=== PATIENT | male | born 1990 | race African-American/Black ===

== ENCOUNTER 2018-11-07 13:39 | Emergency (ER) | payer OTHER ==
--- NOTE | 2018-11-07 14:17 | ER ---
Nurse's Notes [facility] Name: Yamlia Bernardo Age: 28 yrs Sex: Male : 1990 Arrival Date: 11/07/2018 Time: 13:42 Bed 2 Private MD: Diagnosis: Assessment: 11/07 14:16 Reassessment: pt stated that he had to leave for unknown reason, had baby with him. iw ED Course: 13:42 Patient arrived in ED. mr 14:16 Lashae Pedraza, RN is Primary Nurse. iw Administered Medications: No medications were administered Outcome: 14:16 Eloped from waiting room, before seeing physician iw 14:17 Patient left the ED. iw Signatures: Marianna Garcia mr Lashae Pedraza, RN RN iw
== END 2018-11-07 14:17 | disposition left against medical advice (07) ==
LOC: ER 13:39
DX: Z53.21 Procedure and treatment not carried out due to patient leaving prior to being seen by health care provider (principal)

== ENCOUNTER 2018-11-16 08:26 | Emergency (ER) | payer OTHER ==
[2018-11-16] MEDS ORDERED: dexAMETHasone 10 MG/ML VIAL ONE (08:53)
[2018-11-16 09:07] LABS: Basophils % 0.7 % (0-1.3); Eosinophils % 2.6 % (0-4.4); Hematocrit 42.5 % (39.6-49.0); Lymphocytes % 24.3 % (15.3-44.8); MPV 8.6 fL (7.6-11.3); Monocytes % 9.1 % (3.3-12.3)
[2018-11-16 09:22] LABS: ALT/SGPT 22 U/L (12-78); AST/SGOT 17 U/L (15-37); Albumin 3.6 g/dL (3.4-5.0); Alkaline Phosphatase 73 U/L (45-117); BUN Blood Urea Nitrogen 13 mg/dL (7-18); Bicarbonate 31 mmol/L (21-32); Bilirubin Total 0.2 mg/dL (0.2-1.0); Glucose Level 102 mg/dL (74-106); Potassium 3.9 mmol/L (3.5-5.1); Protein, Total 6.7 g/dL (6.4-8.2); Sodium Level 146 mmol/L (136-145)
--- NOTE | 2018-11-16 09:32 | ER ---
Nurse's Notes [facility] Name: Yamila Bernardo Age: 28 yrs Sex: Male : 1990 Arrival Date: 11/16/2018 Time: 08:28 Bed 20 Private MD: Diagnosis: Acute upper respiratory infection, unspecified Presentation: 11/16 08:29 Presenting complaint: EMS states: N/V for 2 weeks, reports cough for 2 weeks, denies em fever, VSS. Transition of care: patient was not received from another setting of care. Onset of symptoms was October 31, 2018. Risk Assessment: Do you want to hurt yourself or someone else? Patient reports no desire to harm self or others. Initial Sepsis Screen: Does the patient meet any 2 criteria? No. Patient's initial sepsis screen is negative. Does the patient have a suspected source of infection? No. Patient's initial sepsis screen is negative. Care prior to arrival: None. 08:29 Method Of Arrival: EMS: [facility] em 08:41 Acuity: YOANA 3 sg Triage Assessment: 08:32 General: Appears in no apparent distress. comfortable, Behavior is calm, cooperative. em Pain: Denies pain. Historical: - Allergies: 08:32 No Known Allergies; em - Home Meds: 08:32 None [Active]; em - PMHx: 08:32 None; em - PSHx: 08:32 None; em - Immunization history:: Adult Immunizations up to date. - Social history:: Smoking status: Patient uses tobacco products, denies chronic smoking, but will smoke occasionally. - Ebola Screening: : Patient negative for fever greater than or equal to 101.5 degrees Fahrenheit, and additional compatible Ebola Virus Disease symptoms Patient denies exposure to infectious person Patient denies travel to an Ebola-affected area in the 21 days before illness onset No symptoms or risks identified at this time. Screenin:34 Abuse screen: Denies threats or abuse. Nutritional screening: No deficits noted. em Tuberculosis screening: No symptoms or risk factors identified. Fall Risk None identified. Assessment: 08:32 General: Appears in no apparent distress. comfortable, Behavior is calm, cooperative, em Denies fever. Pain: Denies pain. Neuro: Level of Consciousness is awake, alert, obeys commands, Oriented to person, place, time, situation. Cardiovascular: Capillary refill < 3 seconds Patient's skin is warm and dry. Respiratory: Reports cough that is productive, Airway is patent Respiratory effort is even, unlabored, Respiratory pattern is regular, symmetrical, Breath sounds are clear bilaterally. Onset: The symptoms/episode began/occurred 2 weeks. GI: Abdomen is flat, Bowel sounds present X 4 quads. Abd is soft and non tender X 4 quads. Reports vomiting. Derm: Skin is intact, is healthy with good turgor, Skin is pink, warm \T\ dry. Musculoskeletal: Capillary refill < 3 seconds, Range of motion: intact in all extremities. 08:40 Reassessment: I agree with the assessment made by Ye JAFFE. sg 09:44 Reassessment: Patient appears in no apparent distress at this time. Patient and/or em family updated on plan of care and expected duration. Pain level reassessed. Patient is alert, oriented x 3, equal unlabored respirations, skin warm/dry/pink. Patient states symptoms have improved. Vital Signs: 08:32 BP 117 / 78; Pulse 87; Resp 18; Temp 97.8; Pulse Ox 99% on R/A; Weight 73.48 kg; Height em 5 ft. 7 in. (170.18 cm); Pain 0/10; 09:44 BP 103 / 73; Pulse 79; Resp 16; Pulse Ox 99% on R/A; em 08:32 Body Mass Index 25.37 (73.48 kg, 170.18 cm) em ED Course: 08:28 Patient arrived in ED. em 08:29 Rosamaria Reynolds FNP is [facility]. nh 08:29 Tobi Hernández MD is Attending Physician. nh 08:32 Arm band placed on. em 08:32 Maintain EMS IV. Dressing intact. Good blood return noted. Site clean \T\ dry. Gauge \T\ em site: 20 LAC. 08:34 Ye Fernandez LVN is Primary Nurse. em 08:34 Patient has correct armband on for positive identification. Bed in low position. Call em light in reach. 08:41 Triage completed. sg 08:46 Chest Pa And Lat (2 Views) XRAY In Process Unspecified. EDMS 09:43 No provider procedures requiring assistance completed. IV discontinued, intact, em bleeding controlled, No redness/swelling at site. Pressure dressing applied. Administered Medications: 08:48 Not Given (Other Intervention Used): Dexamethasone 10 mg IM once em 08:57 Drug: Decadron - Dexamethasone 10 mg Route: IVP; Site: left antecubital; hb 09:42 Follow up: Response: No adverse reaction; Marked relief of symptoms em Outcome: 09:32 Discharge ordered by . ny 09:43 Discharged to home ambulatory. em 09:43 Condition: good 09:43 Discharge instructions given to patient, Instructed on discharge instructions, follow up and referral plans. medication usage, Demonstrated understanding of instructions, follow-up care, medications, Prescriptions given X 2. 09:45 Patient left the ED. em Signatures: Dispatcher [employer] Sin Muniz RN RN sg Rosamaria Reynolds, MAGNETOMETER OPERATOR MAGNETOMETER OPERATOR ny Ye Fernandez, CYCLE DIRECTOR CYCLE DIRECTOR Heather Betancourt, RN RN
--- NOTE | 2018-11-16 09:33 | EDPHYS ---
Physician Documentation [facility] Name: Yamila Bernardo Age: 28 yrs Sex: Male : 1990 Arrival Date: 11/16/2018 Time: 08:28 Bed 20 Private MD: ED Physician Tobi Hernández HPI: 11/16 09:28 This 28 yrs old Black Male presents to ER via EMS with complaints of Nausea/Vomiting. nh 09:29 The patient or guardian reports cough, that is intermittent, with no sputum. Onset: The nh symptoms/episode began/occurred 2 week(s) ago. Severity of symptoms: At their worst the symptoms were moderate, just prior to arrival, in the emergency department the symptoms are unchanged. Associated signs and symptoms: Pertinent positives: sore throat, Pertinent negatives: chest pain, nausea, rhinorrhea. The patient has not experienced similar symptoms in the past. The patient has not recently seen a physician. Historical: - Allergies: 08:32 No Known Allergies; em - Home Meds: 08:32 None [Active]; em - PMHx: 08:32 None; em - PSHx: 08:32 None; em - Immunization history:: Adult Immunizations up to date. - Social history:: Smoking status: Patient uses tobacco products, denies chronic smoking, but will smoke occasionally. - Ebola Screening: : Patient negative for fever greater than or equal to 101.5 degrees Fahrenheit, and additional compatible Ebola Virus Disease symptoms Patient denies exposure to infectious person Patient denies travel to an Ebola-affected area in the 21 days before illness onset No symptoms or risks identified at this time. ROS: 09:29 Constitutional: Negative for fever, chills, and weight loss, Eyes: Negative for injury, nh pain, redness, and discharge, ENT: Negative for injury, pain, and discharge, Neck: Negative for injury, pain, and swelling, Cardiovascular: Negative for chest pain, palpitations, and edema, Back: Negative for injury and pain, : Negative for injury, bleeding, discharge, and swelling, MS/Extremity: Negative for injury and deformity, Skin: Negative for injury, rash, and discoloration, Neuro: Negative for headache, weakness, numbness, tingling, and seizure, Psych: Negative for depression, anxiety, suicide ideation, homicidal ideation, and hallucinations, Allergy/Immunology: Negative for hives, rash, and allergies. 09:29 Cardiovascular: Negative for chest pain, palpitations, and edema. 09:29 Respiratory: Positive for cough, with no reported sputum. 09:29 Abdomen/GI: Positive for vomiting. Exam: 09:29 Constitutional: This is a well developed, well nourished patient who is awake, alert, nh and in no acute distress. Head/Face: Normocephalic, atraumatic. Eyes: Pupils equal round and reactive to light, extra-ocular motions intact. Lids and lashes normal. Conjunctiva and sclera are non-icteric and not injected. Cornea within normal limits. Periorbital areas with no swelling, redness, or edema. ENT: Nares patent. No nasal discharge, no septal abnormalities noted. Tympanic membranes are normal and external auditory canals are clear. Oropharynx with no redness, swelling, or masses, exudates, or evidence of obstruction, uvula midline. Mucous membranes moist. Neck: Trachea midline, no thyromegaly or masses palpated, and no cervical lymphadenopathy. Supple, full range of motion without nuchal rigidity, or vertebral point tenderness. No Meningismus. Chest/axilla: Normal chest wall appearance and motion. Nontender with no deformity. No lesions are appreciated. Cardiovascular: Regular rate and rhythm with a normal S1 and S2. No gallops, murmurs, or rubs. Normal PMI, no JVD. No pulse deficits. Respiratory: Lungs have equal breath sounds bilaterally, clear to auscultation and percussion. No rales, rhonchi or wheezes noted. No increased work of breathing, no retractions or nasal flaring. Abdomen/GI: Soft, non-tender, with normal bowel sounds. No distension or tympany. No guarding or rebound. No evidence of tenderness throughout. Back: No spinal tenderness. No costovertebral tenderness. Full range of motion. Skin: Warm, dry with normal turgor. Normal color with no rashes, no lesions, and no evidence of cellulitis. MS/ Extremity: Pulses equal, no cyanosis. Neurovascular intact. Full, normal range of motion. Neuro: Awake and alert, GCS 15, oriented to person, place, time, and situation. Cranial nerves II-XII grossly intact. Motor strength 5/5 in all extremities. Sensory grossly intact. Cerebellar exam normal. Normal gait. Psych: Awake, alert, with orientation to person, place and time. Behavior, mood, and affect are within normal limits. Vital Signs: 08:32 BP 117 / 78; Pulse 87; Resp 18; Temp 97.8; Pulse Ox 99% on R/A; Weight 73.48 kg; Height em 5 ft. 7 in. (170.18 cm); Pain 0/10; 09:44 BP 103 / 73; Pulse 79; Resp 16; Pulse Ox 99% on R/A; em 08:32 Body Mass Index 25.37 (73.48 kg, 170.18 cm) em MDM: 08:29 Patient medically screened. mn 09:29 Data reviewed: vital signs, nurses notes, lab test result(s), radiologic studies, I nh have discussed the patient's presentation/case with the attending Emergency Department Physician; and as a result, I will discharge patient. Counseling: I had a detailed discussion with the patient and/or guardian regarding: the historical points, exam findings, and any diagnostic results supporting the discharge/admit diagnosis, lab results, radiology results, the need for outpatient follow up, to return to the emergency department if symptoms worsen or persist or if there are any questions or concerns that arise at home. 11/16 08:37 Order name: CBC with Diff; Complete Time: 09:13 mn 11/16 08:37 Order name: CMP; Complete Time: 09:28 mn 11/16 08:33 Order name: Chest Pa And Lat (2 Views) XRAY nh Administered Medications: 08:48 Not Given (Other Intervention Used): Dexamethasone 10 mg IM once em 08:57 Drug: Decadron - Dexamethasone 10 mg Route: IVP; Site: left antecubital; hb 09:42 Follow up: Response: No adverse reaction; Marked relief of symptoms em Disposition: 18:30 Co-signature as Attending Physician, Tobi Hernández MD. Disposition: 11/16/18 09:32 Discharged to Home. Impression: Acute upper respiratory infection, unspecified. - Condition is Stable. - Discharge Instructions: Upper Respiratory Infection, Adult. - Prescriptions for Bromfed DM 2- 30-10 mg/5 mL Oral syrup - take 10 milliliter by ORAL route every 4 hours; 200 milliliter. Zithromax Z- Emil 250 mg Oral Tablet - take 1 tablet by ORAL route as directed for 5 days Day 1 - take two (2) tablets one time. Day 2, 3, 4 , 5 take one (1) tablet once daily.; 6 tablet. - Medication Reconciliation Form, Thank You Letter, Antibiotic Education, Prescription Opioid Use form. - Follow up: Private Physician; When: 5 - 6 days; Reason: Recheck today's complaints. - Problem is new. - Symptoms are unchanged. Signatures: Dispatcher [employer] EDRosamaria Barboza, REGISTERED VASCULAR TECHNOLOGIST (RVT) REGISTERED VASCULAR TECHNOLOGIST (RVT) mn Ye Fernandez, LANE ATTENDANT LANE ATTENDANT em Heather Betancourt, RN RN Tobi Hernández MD MD gs Corrections: (The following items were deleted from the chart) 09:45 09:32 11/16/2018 09:32 Discharged to Home. Impression: Acute upper respiratory em infection, unspecified. Condition is Stable. Forms are Medication Reconciliation Form, Thank You Letter, Antibiotic Education, Prescription Opioid Use. Follow up: Private Physician; When: 5 - 6 days; Reason: Recheck today's complaints. Problem is new. Symptoms are unchanged. mn
--- NOTE | 2018-11-16 10:09 | RAD REPORT ---
EXAM DESCRIPTION: Liliam Worley And Radha (2 Views)11/16/2018 8:47 am CLINICAL HISTORY: Chest pain COMPARISON: none FINDINGS: 7 millimeter opacity right upper lobe may represent calcified granuloma or pulmonary vess els within a small AVM. The lungs appear clear of acute infiltrate. The heart is normal size
== END 2018-11-16 09:45 | disposition home or self-care (01) ==
LOC: ER 08:26
DX: J06.9 Acute upper respiratory infection, unspecified (principal); Z72.0 Tobacco use
CPT/HCPCS: 36415; 71046; 80053; 85025; 96374; 99284; J1100